=== PATIENT | male | born 1975 | race Caucasian/White ===

== ENCOUNTER 2018-10-19 21:07 | Emergency (ER) | payer OTHER ==
[2018-10-19 21:34] VITALS: TEMP 98.4
[2018-10-19] MEDS ORDERED: hydrALAZINE HCL 20 MG/ML 1 ML VIAL IVP STA (22:02)
--- NOTE | 2018-10-19 22:06 | ED ---
General Adult HPI - General Chief complaint: Headache Stated complaint: High BP Source: patient, family Mode of arrival: ambulatory Limitations: no limitations - Related Data Home Medications Medication Instructions Recorded Confirmed Aspirin EC [Ecotrin Low Dose] 81 mg PO DAILY 10/19/18 10/19/18 Cholecalciferol [Vitamin D3] 1,000 unit PO DAILY 10/19/18 10/19/18 Cinnamon Bark [Cinnamon] 500 mg PO DAILY 10/19/18 10/19/18 Multivitamin [Multivitamins Adult 1 tab PO DAILY 10/19/18 10/19/18 Gummies] Vitamin B Complex 1 cap PO DAILY 10/19/18 10/19/18 guaiFENesin [Mucinex] 600 mg PO BID PRN 10/19/18 10/19/18 Previous Rx's Medication Instructions Recorded Amoxicillin/Potassium Clav 1 tab PO BID 7 Days #14 tab 10/19/18 [Augmentin 875-125 Tablet] Hydrochlorothiazide 12.5 mg PO DAILY #20 capsule 10/19/18 Allergies Allergy/AdvReac Type Severity Reaction Status Date / Time No Known Allergies Allergy Verified 10/19/18 21:53 Review of Systems ROS Statement: Those systems with pertinent positive or pertinent negative responses have been documented in the HPI. ROS Other: All systems not noted in ROS Statement are negative. Past Medical History Past Medical History: Hypertension History of Any Multi-Drug Resistant Organisms: None Reported Past Surgical History: No Surgical Hx Reported Past Psychological History: No Psychological Hx Reported Smoking Status: Former smoker Past Alcohol Use History: Occasional Past Drug Use History: Marijuana General Exam Limitations: no limitations Course Vital Signs 10/19/18 10/19/18 10/19/18 21:30 21:50 22:09 Temperature 98.4 F Pulse Rate 73 75 33 L Respiratory 20 18 Rate Blood Pressure 225/120 199/114 113/65 O2 Sat by Pulse 99 99 Oximetry 10/19/18 10/19/18 22:18 22:33 Temperature Pulse Rate 57 L 64 Respiratory 15 15 Rate Blood Pressure 107/89 134/68 O2 Sat by Pulse 99 95 Oximetry Medical Decision Making - Medical Decision Making Dictation was produced using [employer] dictation software. please excuse any grammatical, word or spelling errors. Chief Complaint: 43-year-old male with past medical history of uncontrolled hypertension presents with elevated blood pressure and nasal congestion. History of Present Illness: 43-year-old male presents with past medical history of uncontrolled hypertension presents with elevated blood pressure and nasal congestion. Patient has had nasal congestion and upper respiratory infectious type symptoms for the last several weeks. He checked his blood pressure today because he has history of elevated blood pressure and it was found to be high. Patient was prescribed clonidine patch in the past however he took himself off of it due to side effects. I sent. His clotting patch was several months ago. Patient is not associated with primary care doctor at this time. Patient does not take any antihypertensive medications at this time. Patient reports having have history of intracranial bleed. Mild headache that is posterior radiating from the posterior soft tissues neck. The ROS documented in this emergency department record has been reviewed and confirmed by me. Those systems with pertinent positive or negative responses have been documented in the HPI. All other systems are other negative and/or noncontributory. PHYSICAL EXAM: General Impression: Alert and oriented x3, not in acute distress HEENT: Normocephalic atraumatic, extra-ocular movements intact, pupils equal and reactive to light bilaterally, mucous membranes moist. Cardiovascular: Heart regular rate and rhythm, S1&S2 audible, no murmurs, rubs or gallops Chest: Lungs clear to auscultation bilaterally, no rhonchi, no wheeze, no rales Abdomen: Bowel sounds present, abdomen soft, non-tender, non-distended, no organomegaly Musculoskeletal: Pulses present and equal in all extremities, no peripheral edema Motor: Power 5/5 bilaterally, no focal deficits noted Neurological: CN II-XII grossly intact, no focal motor or sensory deficits noted Skin: Intact with no visualized rashes Psych: Normal affect and mood ED course: 43 yo male presents with elevated blood pressure. Vital signs upon arrival shows blood pressure 225/120, worse vital signs within acceptable limits. Patient has benign physical examination. Headache is consistent with tension headache. Patient has been taking lots of [id number] cough suppressants including Sudafed containing medications [id number]. Patient told that he should refrain from this at this point. Patient given prescription for hydrochlorothiazide 5 daily. Is given referral to outpatient care physician. Patient is also given Augmentin for sinusitis. Patient understandable agreeable to disposition. Told to return to the emergency Department with any worsening symptoms. - Lab Data Result diagrams: 10/19/18 22:00 10/19/18 22:00 Lab Results 10/19/18 10/19/18 Range/Units 22:00 22:00 WBC 11.5 H (3.8-10.6) k/uL RBC 5.31 (4.30-5.90) m/uL Hgb 15.3 (13.0-17.5) gm/dL Hct 46.6 (39.0-53.0) % MCV 87.8 (80.0-100.0) fL MCH 28.9 (25.0-35.0) pg MCHC 32.9 (31.0-37.0) g/dL RDW 14.0 (11.5-15.5) % Plt Count 259 (150-450) k/uL Neutrophils % 65 % Lymphocytes % 24 % Monocytes % 5 % Eosinophils % 5 % Basophils % 1 % Neutrophils # 7.5 (1.3-7.7) k/uL Lymphocytes # 2.7 (1.0-4.8) k/uL Monocytes # 0.5 (0-1.0) k/uL Eosinophils # 0.6 (0-0.7) k/uL Basophils # 0.1 (0-0.2) k/uL Sodium 139 (137-145) mmol/L Potassium 4.0 (3.5-5.1) mmol/L Chloride 103 (98-107) mmol/L Carbon Dioxide 28 (22-30) mmol/L Anion Gap 8 mmol/L BUN 25 H (9-20) mg/dL Creatinine 1.17 (0.66-1.25) mg/dL Est GFR (CKD-EPI)AfAm 89 (>60 ml/min/1.73 sqM) Est GFR (CKD-EPI)NonAf 77 (>60 ml/min/1.73 sqM) Glucose 106 H (74-99) mg/dL Calcium 9.7 (8.4-10.2) mg/dL Disposition Clinical Impression: Hypertension, Sinusitis Disposition: HOME SELF-CARE Condition: Good Instructions: Sinusitis (ED), Hypertension (ED) Prescriptions: Amoxicillin/Potassium Clav [Augmentin 875-125 Tablet] 1 tab PO BID 7 Days #14 tab Hydrochlorothiazide 12.5 mg PO DAILY #20 capsule Is patient prescribed a controlled substance at d/c from ED?: No Referrals: None,Stated [Primary Care Provider] - 1-2 days Al Russell MD [REFERRING] - 1-2 days Time of Disposition: 23:24
[2018-10-19 22:30] LABS: Basophils # (A) 0.1 k/uL (0-0.2); Basophils % (A) 1 %; Eosinophils # (A) 0.6 k/uL (0-0.7); Eosinophils % (A) 5 %; HCT 46.6 % (39.0-53.0); HGB 15.3 gm/dL (13.0-17.5); Lymphocytes # (A) 2.7 k/uL (1.0-4.8); Lymphocytes % (A) 24 %; MCH 28.9 pg (25.0-35.0); MCHC 32.9 g/dL (31.0-37.0); MCV 87.8 fL (80.0-100.0); Mean Platelet Volume 7.6; Monocytes # (A) 0.5 k/uL (0-1.0); Monocytes % (A) 5 %; Neutrophils # (A) 7.5 k/uL (1.3-7.7); Neutrophils % (A) 65 %; Platelet Count 259 k/uL (150-450); RBC 5.31 m/uL (4.30-5.90); WBC 11.5 k/uL (3.8-10.6)
[2018-10-19 22:34] LABS: Calcium 9.7 mg/dL (8.4-10.2)
[2018-10-19 23:30] VITALS: BP 155/87; PULSE 81; RESP 16
== END 2018-10-19 23:42 | disposition home or self-care (01) ==
LOC: EC 21:07
DX: J32.9 Chronic sinusitis, unspecified (principal); I10 Essential (primary) hypertension; Z86.79 Personal history of other diseases of the circulatory system; Z87.891 Personal history of nicotine dependence; Z79.82 Long term (current) use of aspirin; Z79.899 Other long term (current) drug therapy; Z53.8 Procedure and treatment not carried out for other reasons
CPT/HCPCS: 36415; 80048; 85025; 93005; 99284

== ENCOUNTER → 2023-12-20 | Outpatient (CLI) | payer SELFPAY ==
--- NOTE | 2023-12-20 10:48 | CT ---
EXAMINATION TYPE: CT angio chest (without and with contrast) DATE OF EXAM: 12/20/2023 COMPARISON: None HISTORY: 48-year-old male I71.20 thoracic aortic aneurysm TECHNIQUE: CT of the chest before and after the administration of 100 mL of Isovue 370. Coronal/sagi ttal reconstructions performed. 3-D reconstructions generated on a dedicated independent workstation. CT DLP: 1552.7mGycm. Automatic exposure control utilized for a dose reduction. FINDINGS: The heart is normal size without pericardial effusion. Scattered LAD and RCA coronary artery calcific ations are present. Ectatic aortic root at 3.8 cm. Ascending aortic aneurysm at 4.6 cm. Conventional large vessel branching anatomy with mild atherosclerotic arch calcifications. Descending thoracic aorta normal caliber. No evidence for aortic dissection. No thoracic adenopathy by CT size criteria. There is [id number] diffuse bronchial wall thickening without consolidation or pleural effusion . Visualized upper abdomen shows underlying fatty infiltration of the liver. Bones: No osseous destructive process. IMPRESSION: 1. Aneurysmal ascending aorta at 4.6 cm and ectatic aortic root at 3.8 cm. 2. Scattered LAD and RCA coronary calcifications. 3. Bronchial wall thickening can be seen with bronchitis or asthma. 4. Correlate for hepatic steatosis.
== END | disposition home or self-care (01) ==
LOC: RADCTMAIN 08:22
PROVIDERS: ATTEND Internal Medicine Interventional Cardiology
DX: I71.21 Aneurysm of the ascending aorta, without rupture (principal); I25.10 Atherosclerotic heart disease of native coronary artery without angina pectoris; J98.09 Other diseases of bronchus, not elsewhere classified
CPT/HCPCS: 71275; Q9967